=== PATIENT | female | born 1985 | race Caucasian/White ===

== ENCOUNTER → 2017-03-02 | Outpatient (CLI) | payer SELFPAY | END | disposition short-term general hospital (02) | LOC: CLOBGYN 10:50 | DX: N91.5 Oligomenorrhea, unspecified (principal) ==

== ENCOUNTER → 2017-03-02 | Outpatient (CLI) | payer SELFPAY | END | disposition short-term general hospital (02) | LOC: CLENT | DX: J30.2 Other seasonal allergic rhinitis (principal); F45.8 Other somatoform disorders; R68.89 Other general symptoms and signs; R22.1 Localized swelling, mass and lump, neck; Z72.0 Tobacco use ==